=== PATIENT | female | born 1985 | race Two or more races ===

== ENCOUNTER 2023-04-19 02:01 | Emergency (ER) | payer OTHER ==
[~2023-04-19] VITALS: Ht 162.6 cm; Wt 59.1 kg
[2023-04-19 02:43] VITALS: BP 117/84; PULSE 82; RESP 18; O2SAT 100
[2023-04-19 03:25] LABS: White Blood Cell 4.3 10^3/uL (4.4-10.8)
[2023-04-19 03:26] LABS: Hematocrit 29.3 % (36.0-46.0); Mean Corpuscular Hemoglobin 22.2 pg (28.0-32.0); Mean Corpuscular Hgb Conc. 30.6 g/dL (32.0-36.0); Mean Corpuscular Volume 72.4 fL (80.0-100.0); Red Blood Cells 4.04 10^6/uL (4.0-5.20)
[2023-04-19 03:26] LABS: Urine Bacteria MANY /hpf (None Seen); Urine Blood 3+ /uL (Negative); Urine Budding Yeast OCCASIONAL /hpf (None Seen); Urine Clarity CLOUDY (Clear); Urine Color Yellow (Yellow); Urine Hyaline Cast FEW /lpf (0 - 2); Urine Mucus FEW (None Seen); Urine Protein, UAD 1+ (Negative); Urine Specific Gravity 1.025 (1.001-1.035); Urine WBC 92 /hpf (0 - 5)
[2023-04-19 03:33] LABS: Alanine Aminotransferase 12 U/L (7-40); Albumin 4.5 g/dL (3.2-4.8); Alkaline Phosphatase 54 U/L (46-116); Anion Gap 7 (5-15); Aspartate Aminotransferase 18 U/L (13-40); BUN/Creatinine Ratio 10.3 (10.0-20.0); Bilirubin, Total 0.3 mg/dL (0.2-1.0); Blood Urea Nitrogen 7 mg/dL (9-23); Calcium 8.5 mg/dL (8.7-10.4); Carbon Dioxide 27 mmol/L (20-30); Chloride 107 mmol/L (98-107); Glucose 133 mg/dL (74-106); Lipase 56 U/L (12-53); Potassium 3.1 mmol/L (3.5-5.1); Sodium 141 mmol/L (136-145)
[2023-04-19 03:34] LABS: Total Protein 6.6 g/dL (5.7-8.2)
[2023-04-19 04:13] LABS: Basophils % (manual) 0 (0.0-2.0); Blast Cells 0; Metamyelocytes % 0; Myelocytes % 0; Promyelocytes % 0; Reactive Lymphocytes 0
[2023-04-19 05:47] LABS: Anisocytosis Slight; Band Neutrophils % (manual) 2; Eosinophils % (manual) 6 (0-7); Hypochromia Moderate; Lymphocytes % (manual) 39 (10.0-50.0); Monocytes % (manual) 9 (0-12); Ovalocytes FEW; Platelet Estimate Adequate; Target Cell FEW
[2023-04-19] MEDS ORDERED: ZOFR4T PO (16:08)
[2023-04-19] MEDS ORDERED: ACE3T PO (16:08)
[2023-04-19] MEDS ORDERED: LEVO750T8 PO (16:08)
[2023-04-19] MEDS ORDERED: IBUP-1455 PO (16:08)
== END 2023-04-19 07:04 | disposition left against medical advice (07) ==
LOC: ER 02:01
DX: R11.2 Nausea with vomiting, unspecified (principal); R51.9 Headache, unspecified; Z53.21 Procedure and treatment not carried out due to patient leaving prior to being seen by health care provider; Z79.899 Other long term (current) drug therapy
CPT/HCPCS: 36415; 80053; 81001; 81025; 83690; 85007; 85027; 87086; 87088; 87186

== ENCOUNTER 2023-04-19 14:26 | Emergency (ER) | payer OTHER ==
[~2023-04-19] VITALS: Ht 162.6 cm; Wt 62.4 kg
[2023-04-19] MEDS ORDERED: IPRATROPIUM BROM 0.5 MG/2.5ML INH SOL NEB ONE (15:00)
[2023-04-19] MEDS ORDERED: ALBUTEROL MEDNEB 2.5 mg/3ml NEB NEB ONE (15:00)
[2023-04-19] MEDS ORDERED: DICYCLOMINE HCL (10MG/ML) 2 ML AMPULE IM ONE (15:00)
[2023-04-19] MEDS ORDERED: ONDANSETRON HCL 4 MG/2 ML VIAL IM ONE (15:00)
[2023-04-19] MEDS ORDERED: levoFLOXacin 250 MG TAB PO ONE (15:00)
[2023-04-19] MEDS ORDERED: DexAMETHasone SOD PHOS 10MG/1ML VIAL INJ IM ONE (15:00)
[2023-04-19] MEDS ORDERED: ZOFR4T PO (16:08)
[2023-04-19] MEDS ORDERED: LEVO750T8 PO (16:08)
[2023-04-19] MEDS ORDERED: ACE3T PO (16:08)
[2023-04-19] MEDS ORDERED: IBUP-1455 PO (16:08)
[2023-04-19 16:31] VITALS: BP 122/86; PULSE 86; RESP 18; TEMP 98.4; O2SAT 100
== END 2023-04-19 16:33 | disposition home or self-care (01) ==
LOC: ER 14:26
DX: N12 Tubulo-interstitial nephritis, not specified as acute or chronic (principal); R06.02 Shortness of breath
CPT/HCPCS: 94640; 96372; 99284; J0500; J1100; J2405; J7644